=== PATIENT | male | born 1950 | race Two or more races ===

== ENCOUNTER 2018-05-18 11:35 | Emergency (ER) | payer OTHER ==
[~2018-05-18] VITALS: Ht 160 cm; Wt 77.1 kg
[2018-05-18] MEDS ORDERED: IPRATROPIUM BROM 0.5 MG/2.5ML INH SOL NEB ONE (12:00)
[2018-05-18] MEDS ORDERED: ALBUTEROL SULF 2.5 MG/0.5ML(0.5%) NEB SOLN NEB ONE (12:00)
[2018-05-18] MEDS ORDERED: methylPREDNISolone SOD SUCC 125 MG/2 ML VL IV ONE (12:15)
[2018-05-18 12:17] LABS: Basophils # (auto) 0.1 uL; Basophils % (auto) 1.2 % (0.0-2.0); Eosinophils # (auto) 1.4 uL; Eosinophils % (auto) 12.8 % (0.0-7.0); Hematocrit 48.5 % (41.0-53.0); Lymphocytes % (auto) 17.8 % (10.0-50.0); Mean Corpuscular Hemoglobin 28.8 pg (28.0-32.0); Mean Corpuscular Hgb Conc. 32.9 g/dL (32.0-36.0); Mean Corpuscular Volume 87.6 fL (80.0-100.0); Monocytes # (auto) 0.9 uL; Monocytes % (auto) 7.9 % (0.0-12.0); Neutrophils # (auto) 6.8 uL; Neutrophils % (auto) 60.3 % (37.0-80.0); Nucleated Red Blood Cells % 0.1 %; Platelet Count (auto) 191 10^3/uL (140-450); Red Blood Cells 5.54 10^6/uL (4.5-5.90); Red Cell Distribution Width 15.7 % (11.8-14.3); White Blood Cell 11.2 10^3/uL (4.4-10.8)
[2018-05-18 12:35] LABS: Albumin 3.7 g/dL (3.4-5.0); BUN/Creatinine Ratio 21.8; Calcium 8.2 mg/dL (8.5-10.1); Magnesium 2.2 mg/dL (1.6-2.6); Potassium 4.1 mmol/L (3.5-5.1)
[2018-05-18 12:40] LABS: Bilirubin, Total 0.4 mg/dL (0.2-1.0); Total Protein 7.1 g/dL (6.4-8.2)
[2018-05-18 14:01] VITALS: BP 150/86
== END 2018-05-18 14:21 | disposition home or self-care (01) ==
LOC: ER 11:35
DX: J44.1 Chronic obstructive pulmonary disease with (acute) exacerbation (principal); E11.9 Type 2 diabetes mellitus without complications; I10 Essential (primary) hypertension; Z87.891 Personal history of nicotine dependence
CPT/HCPCS: 36415; 36600; 71046; 80053; 82805; 83735; 83880; 84484; 85025; 93005; 94640; 96374; 99284; J2930; J7611; J7644